=== PATIENT | female | born 1995 | race Caucasian/White ===

== ENCOUNTER 2018-03-08 08:20 | Emergency (ER) | payer BC, MEDICAID ==
[~2018-03-08] VITALS: Ht 182.9 cm; Wt 114.3 kg
[~2018-03-08 08:20] MED LIST: IBUPROFEN600 MG PO; PERCOCET 5-3251 TAB PO
[2018-03-08 08:50] VITALS: Ht 182.9 cm; Wt 114.3 kg
[2018-03-08] MEDS ORDERED: EC-NAPROSYN500 MG PO (11:12)
[2018-03-08] MEDS ORDERED: PENICILLIN V P500 MG PO (11:12)
[2018-03-08 12:13] VITALS: BP 133/91
== END 2018-03-08 12:13 | disposition home or self-care (01) ==
LOC: D.ER 08:20
DX: K08.89 Other specified disorders of teeth and supporting structures (principal); K02.9 Dental caries, unspecified